=== PATIENT | female | born 1995 | race Hispanic/Latino ===

== ENCOUNTER 2016-05-26 21:20 | Emergency (ER) | payer OTHER ==
[~2016-05-26] VITALS: Ht 165.1 cm; Wt 99.8 kg
[2016-05-26 22:02] LABS: ABSOLUTE BASOPHIL COUNT 0 /CUMM (0.0-0.2); ABSOLUTE EOSINOPHIL COUNT 0.1 /CUMM (0.0-0.7); ABSOLUTE GRANULOCYTE CT 4.3 /CUMM (1.4-6.5); ABSOLUTE LYMPH COUNT 2.2 /CUMM (1.2-3.4); ABSOLUTE MONOCYTE COUNT 0.3 /CUMM (0.10-0.60); BASOPHIL % 0.3 % (0.0-2.0); EOSINOPHIL % 1.5 % (0-5); GRANULOCYTE % 62.1 % (42.2-75.2); MEAN CORPUSCULAR HGB 24.8 PG (27.0-31.0); MEAN CORPUSCULAR HGB CONC 31.7 G/DL (33.0-37.0); MEAN CORPUSCULAR VOLUME 78.1 FL (81.0-99.0); MEAN PLATELET VOLUME 9.1 FL (7.4-10.4); PLATELET COUNT 267 /CUMM (130-400); RED BLOOD CELL CT 5.26 /CUMM (4.20-5.40)
--- NOTE | 2016-05-26 22:27 | ED GI/GU/ABDOMINAL COMPLAINT ---
History of Present Illness General Chief Complaint: Female Urogenital Problems Stated Complaint: 8WKS PREG, SPOTTING FOR FEW DAYS,NOW HEAVIER Source: patient Exam Limitations: no limitations Vital Signs & Intake/Output Vital Signs & Intake/Output Vital Signs Date Time Temp Pulse Resp B/P Pulse O2 O2 Flow FiO2 Ox Delivery Rate 05/26 2320 Room Air 05/26 2130 98.3 89 15 148/78 100 Room Air ED Intake and Output 05/27 0000 05/26 1200 Intake Total Output Total Balance Patient 220 lb Weight Allergies Coded Allergies: No Known Allergies (06/01/16) Triage Note: PT TO ED FOR VAG BLEEDING FOR PAST 3 DAYS. CURRENTLY 8 WEEKS , REPORTING "SMALL AMOUNT OF BRIGHT RED BLOOD WHEN I WIPE AND TINY TINY TINY LITTLE CLOTS 3 TIMES". ALSO REPORTING LIGHT BROWN VAGINAL DISCHARGE. HAS FIRST APPOINTMENT WITH OB TOMORROW. DENIES ABD PAIN/CRAMPING. . Triage Nurses Notes Reviewed? yes ? Y Is pt currently ? No Onset: Abrupt Duration: hour(s): (FEW) Location: suprapubic Radiation: no radiation No Modifying Factors: none HPI: 20-year-old female last menstrual period March 29 due for her first OB appointment next week presents to the ER for chief complaint of lower abdominal cramping and spotting. She states she had some spotting that started yesterday. When she wipes she thinks there is enough to fill a panty liner. No large clots or tissue. Denies any history of similar symptoms in the last 8 weeks. She has a history of anemia. No fluid leakage. Patient's history other than is negative. She states her blood type is B+. Past History Travel History Traveled to [place] past 21 day No Medical History Any Pertinent Medical History? see below for history Neurological: NONE EENT: NONE Cardiovascular: NONE Respiratory: NONE Gastrointestinal: NONE Hepatic: NONE Renal: NONE Musculoskeletal: NONE Psychiatric: NONE Endocrine: NONE Blood Disorders: NONE Cancer(s): NONE Surgical History Surgical History: non-contributory Psychosocial History What is your primary language Kiswahili Tobacco Use: Never used ETOH Use: denies use Illicit Drug Use: denies illicit drug use Family History Hx Contributory? No Review of Systems Review of Systems Constitutional: Denies: chills, fever. EENTM: Reports: no symptoms. Respiratory: Reports: no symptoms. Cardiovascular: Reports: no symptoms. GI: Reports: abdominal pain, nausea. Denies: steatorrhea. Genitourinary: Reports: no symptoms. Musculoskeletal: Reports: back pain. Skin: Reports: no symptoms. Neurological/Psychological: Reports: anxiety. Hematologic/Endocrine: Reports: bleeding. Denies: bruising, polyuria, polydipsia. Immunologic/Allergic: Reports: no symptoms. All Other Systems: Reviewed and Negative Physical Exam Physical Exam General Appearance: well developed/nourished, alert, awake, anxious, mild distress Head: atraumatic, normal appearance Eyes: Bilateral: normal appearance, PERRL, EOMI. Ears, Nose, Throat, Mouth: hearing grossly normal, moist mucous membrane Neck: normal inspection, supple, full range of motion Respiratory: normal breath sounds, chest non-tender, no respiratory distress Cardiovascular: regular rate/rhythm Gastrointestinal: normal bowel sounds, soft, tenderness (SUPRAPUBIC) Pelvic: POSTERIOR/LONG/CLOSED BLOOD ON FINGERTIP Extremities: normal range of motion Neurologic/Psych: no motor/sensory deficits, awake, alert, oriented x 3 Skin: intact, normal color, warm/dry Core Measures ACS in differential dx? No Severe Sepsis Present: No Septic Shock Present: No Progress Differential Diagnosis: ectopic , threatened AB, SPONTANEOUS AB Plan of Care: Orders Procedure Date/time Status TYPE & SCREEN (NOT X-MATCH) 05/27 2151 Complete HUMAN BETA HCG TITRE 05/26 2129 Complete COMPREHENSIVE METABOLIC PANEL 05/26 2129 Complete CBC WITHOUT DIFFERENTIAL 05/26 2129 Complete Laboratory Tests 05/26/162143: Anion Gap 13, Estimated GFR > 60, BUN/Creatinine Ratio 13.8, Glucose 99, Calcium 10.0, Total Bilirubin 0.3, AST 26, ALT 41, Alkaline Phosphatase 72, Total Protein 7.5, Albumin 4.2, Globulin 3.3, Albumin/Globulin Ratio 1.3, Beta HCG, Quant 13314.0, CBC w Diff NO MAN DIFF REQ, RBC 5.26, MCV 78.1 L, MCH 24.8 L, RDW 16.0 H, MPV 9.1, Gran % 62.1, Lymphocytes % 32.2, Monocytes % 3.9, Eosinophils % 1.5, Basophils % 0.3, Absolute Granulocytes 4.3, Absolute Lymphocytes 2.2, Absolute Monocytes 0.3, Absolute Eosinophils 0.1, Absolute Basophils 0, PUBS MCHC 31.7 L Diagnostic Imaging: Viewed by Me: Ultrasound. Discussed w/RAD: Ultrasound. Radiology Impression: PATIENT: LUCI DAVIS PRESENT AGE: 20 PATIENT ACCOUNT NO: [id number] : 93 LOCATION: [facility] ORDERING PHYSICIAN: JODI SOTOMAYOR MD SERVICE DATE: 05/27/16 EXAM TYPE: US - US TRANSVAG EXAMINATION: ULTRASOUND FIRST TRIMESTER CLINICAL INFORMATION: Lower abdominal pain and cramping. Vaginal spotting. COMPARISON: None. TECHNIQUE: Transabdominal and transvaginal imaging of the pelvis was performed. Transvaginal imaging was performed for further evaluation of the endometrium and adnexa. FINDINGS: A normal gravid uterus is identified. The cervix measures 3.0 cm. An empty gestational sac is identified with a mean sac diameter of 1.9 cm corresponding to 6 weeks 6 days. No pole is identified. There is no yolk sac. No heart rate is identified. There is a decidual reaction. Both ovaries are of normal size and echogenicity. The right measures 3.1 x 1.9 x 2.3 cm. This measurement includes an 8 mm follicle. The left measures 3.0 x 1.1 x 2.2 cm. There is no pelvic free fluid. IMPRESSION: Empty gestational sac. DICTATED BY: INGRID OLIVA MD DATE/TIME DICTATED:05/27/1699 [employer] HISTORY:LILI DATE/TIME TRANSCRIBED:05/27/1699 CONFIDENTIAL, DO NOT COPY WITHOUT APPROPRIATE AUTHORIZATION. <Electronically signed in Other Vendor System> SIGNED BY: INGRID OLIVA MD 05/27/16 0113 Initial ED EKG: none Departure Departure Time of Disposition: 014 Disposition: HOME OR SELF CARE Condition: Stable Clinical Impression Primary Impression: Threatened Referrals: NILDA BRITO,GANESH CHAMORRO MD,CECE (PCP/Family) Additional Instructions: Follow-up with Dr. Aldrich in the office today for further evaluation. Take a copy of the ultrasound report and blood test done today. Departure Forms: Customer Survey General Discharge Information
--- NOTE | 2016-05-27 01:13 | ULTRASOUND REPORT ---
EXAMINATION: ULTRASOUND FIRST TRIMESTER CLINICAL INFORMATION: Lower abdominal pain and cramping. Vaginal spotting. COMPARISON: None. TECHNIQUE: Transabdominal and transvaginal imaging of the pelvis was performed. Transvaginal imaging was performed for further evaluation of the endometrium and adnexa. FINDINGS: A normal gravid uterus is identified. The cervix measures 3.0 cm. An empty gestational sac is identified with a mean sac diameter of 1.9 cm corresponding to 6 weeks 6 days. No pole is identified. There is no yolk sac. No heart rate is identified. There is a decidual reaction. Both ovaries are of normal size and echogenicity. The right measures 3.1 x 1.9 x 2.3 cm. This measurement includes an 8 mm follicle. The left measures 3.0 x 1.1 x 2.2 cm. There is no pelvic free fluid. IMPRESSION: Empty gestational sac.
[2016-05-27 01:47] VITALS: BP 132/74
== END 2016-05-27 01:47 ==
LOC: ERH 21:20
PROVIDERS: Emergency Medicine
DX: O20.0 Threatened abortion (principal)
CPT/HCPCS: 76817

== ENCOUNTER 2016-06-01 06:42 | Emergency (ER) | payer OTHER ==
[~2016-06-01] VITALS: Ht 165.1 cm; Wt 99.8 kg
--- NOTE | 2016-06-01 07:01 | ED GI/GU/ABDOMINAL COMPLAINT ---
History of Present Illness General Chief Complaint: Female Urogenital Problems Stated Complaint: MISCARRIAGE PER PT, DISCHARGE AND VAG Source: patient, family, old records Exam Limitations: no limitations Vital Signs & Intake/Output Vital Signs & Intake/Output Vital Signs Date Time Temp Pulse Resp B/P Pulse O2 O2 Flow FiO2 Ox Delivery Rate 06/01 0734 99 Room Air 06/01 0652 95.8 61 18 127/82 98 Room Air Allergies Coded Allergies: No Known Allergies (06/01/16) Triage Note: 20 YO FEMALE 6 WEEKS G1PO TO ED FOR "BLEEDING AND PASSING TENNIS BALL SIZE CLOTS" STARTED LAST NIGHT. 04/25 LOWER ABD PAIN/CRAMPING. 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 HAD US FRIDAY 05/26 "SHOWED AN EMPTY EMBRYO SAC." OBGYN IS MD MUNGUIA. Triage Nurses Notes Reviewed? yes ? Y Is pt currently ? No HPI: Patient is in early stages of and was seen here on May 26 for spotting. At that time her Quant was 30,000 but the ultrasound showed an empty gestational sac. Patient then followed up with her physician the next day. She continued to have the spotting but then last night started having pelvic cramps and increased spotting and then at 2 AM she began passing clots. The cramping is constant. There are no aggravating or mitigating factors. There is no radiation. She rates the cramps as 6 out of 10. There is no nausea or vomiting. There is no dysuria. Past History Travel History Traveled to [place] past 21 day No Medical History Any Pertinent Medical History? none Neurological: NONE EENT: NONE Cardiovascular: NONE Respiratory: NONE Gastrointestinal: NONE Hepatic: NONE Renal: NONE Musculoskeletal: NONE Psychiatric: NONE Endocrine: NONE Blood Disorders: NONE Cancer(s): NONE Surgical History Surgical History: non-contributory Psychosocial History What is your primary language Yakut Tobacco Use: Never used ETOH Use: denies use Illicit Drug Use: denies illicit drug use Family History Hx Contributory? No Review of Systems Review of Systems Constitutional: Reports: no symptoms. EENTM: Reports: no symptoms. Respiratory: Reports: no symptoms. Cardiovascular: Reports: no symptoms. GI: Reports: see HPI. Genitourinary: Reports: see HPI. Musculoskeletal: Reports: no symptoms. Skin: Reports: no symptoms. Neurological/Psychological: Reports: no symptoms. Hematologic/Endocrine: Reports: no symptoms. Immunologic/Allergic: Reports: no symptoms. All Other Systems: Reviewed and Negative Physical Exam Physical Exam General Appearance: well developed/nourished, alert, awake, mild distress Head: atraumatic, normal appearance Eyes: Bilateral: PERRL, EOMI. Ears, Nose, Throat, Mouth: hearing grossly normal, moist mucous membrane Neck: normal inspection, supple, full range of motion Respiratory: normal breath sounds, chest non-tender, no respiratory distress, lungs clear Cardiovascular: regular rate/rhythm, normal peripheral pulses Gastrointestinal: normal bowel sounds, soft, non-tender, no organomegaly Back: normal inspection, normal range of motion Extremities: normal range of motion Neurologic/Psych: no motor/sensory deficits, awake, alert, oriented x 3, normal gait, normal mood/affect Skin: intact, normal color, warm/dry Core Measures ACS in differential dx? No Severe Sepsis Present: No Septic Shock Present: No Progress Differential Diagnosis: intrauterine , threatened AB Plan of Care: Orders Procedure Date/time Status HUMAN BETA HCG TITRE 06/01 0700 Complete CBC WITHOUT DIFFERENTIAL 06/01 0700 Complete Laboratory Tests 06/01/16 0756: Beta HCG, Quant 49859.0, CBC w Diff NO MAN DIFF REQ, RBC 5.01, MCV 78.4 L, MCH 25.5 L, RDW 16.1 H, MPV 9.3, Gran % 82.5 H, Lymphocytes % 13.1 L, Monocytes % 3.8, Eosinophils % 0.5, Basophils % 0.1, Absolute Granulocytes 7.2 H, Absolute Lymphocytes 1.1 L, Absolute Monocytes 0.3, Absolute Eosinophils 0, Absolute Basophils 0, PUBS MCHC 32.6 L Initial ED EKG: none Departure Departure Disposition: HOME OR SELF CARE Condition: Stable Clinical Impression Primary Impression: Miscarriage Referrals: NILDA BRITO,GANESH CHAMORRO MD,CECE (PCP/Family) Additional Instructions: RETURN IF BLEEDING WORSENS OR FOR ANY CONCERNS Departure Forms: Customer Survey General Discharge Information
[2016-06-01 08:15] LABS: ABSOLUTE BASOPHIL COUNT 0 /CUMM (0.0-0.2); ABSOLUTE EOSINOPHIL COUNT 0 /CUMM (0.0-0.7); ABSOLUTE GRANULOCYTE CT 7.2 /CUMM (1.4-6.5); ABSOLUTE LYMPH COUNT 1.1 /CUMM (1.2-3.4); ABSOLUTE MONOCYTE COUNT 0.3 /CUMM (0.10-0.60); BASOPHIL % 0.1 % (0.0-2.0); EOSINOPHIL % 0.5 % (0-5); GRANULOCYTE % 82.5 % (42.2-75.2); HEMATOCRIT 39.3 % (37-47); MEAN CORPUSCULAR HGB 25.5 PG (27.0-31.0); MEAN CORPUSCULAR HGB CONC 32.6 G/DL (33.0-37.0); MEAN CORPUSCULAR VOLUME 78.4 FL (81.0-99.0); MEAN PLATELET VOLUME 9.3 FL (7.4-10.4); PLATELET COUNT 254 /CUMM (130-400); RBC DISTRIBUTION WIDTH 16.1 % (11.5-14.5); RED BLOOD CELL CT 5.01 /CUMM (4.20-5.40); WHITE BLOOD CELL COUNT 8.8 /CUMM (4.8-10.8)
[2016-06-01 09:25] VITALS: BP 116/69
== END 2016-06-01 09:48 ==
LOC: ERH 06:42
PROVIDERS: Emergency Medicine
DX: O03.9 Complete or unspecified spontaneous abortion without complication (principal)
CPT/HCPCS: 96374; J1885